=== PATIENT | male | born 1975 | race Caucasian/White ===

== ENCOUNTER 2017-11-10 10:34 | Emergency (ER) | payer BC ==
[2017-11-10] MEDS ORDERED: SODIUM CHLORIDE 0.9% 500 ML IV STA (11:13)
--- NOTE | 2017-11-10 11:15 | ED ---
General Adult HPI - General Chief complaint: Chest Pain Stated complaint: CHEST PAIN Time Seen by Provider: 11/10/17 10:40 Source: patient, RN notes reviewed Mode of arrival: ambulatory Limitations: no limitations - History of Present Illness Initial comments: 42-year-old male presents for evaluation of left-sided chest pain. Patient's pain has been present over the past 3 weeks. States it does come and go. He is able to point to a specific location. This is worse with movement of his shoulder. Pain radiates to the left shoulder. He did have an episode of nausea and vomiting this morning. He does complain of some diaphoresis associated with this pain. No central substernal chest pain. No significant dyspnea. Patient has no history of CAD. He is a current smoker, has no health problems. No family history of CAD. Patient denies any injury or trauma. - Related Data Home Medications Medication Instructions Recorded Confirmed Omeprazole 40 mg PO DAILY 11/10/17 11/10/17 Pnv No.95/Ferrous Fum/Folic AC 1 tab PO DAILY 11/10/17 11/10/17 [ Multivitamin Tablet] Previous Rx's Medication Instructions Recorded Ibuprofen [Motrin] 600 mg PO Q8HR PRN #24 tab 11/10/17 Allergies Allergy/AdvReac Type Severity Reaction Status Date / Time No Known Allergies Allergy Verified 11/10/17 11:39 Review of Systems ROS Statement: Those systems with pertinent positive or pertinent negative responses have been documented in the HPI. ROS Other: All systems not noted in ROS Statement are negative. Past Medical History Past Medical History: GERD/Reflux History of Any Multi-Drug Resistant Organisms: None Reported Past Surgical History: Orthopedic Surgery, Tonsillectomy Past Psychological History: No Psychological Hx Reported Smoking Status: Current every day smoker Past Alcohol Use History: Occasional Past Drug Use History: None Reported General Exam Limitations: no limitations General appearance: alert, in no apparent distress Head exam: Present: atraumatic, normocephalic Eye exam: Present: normal appearance, PERRL, EOMI ENT exam: Present: normal exam, mucous membranes dry Neck exam: Present: normal inspection. Absent: tenderness, meningismus Respiratory exam: Present: normal lung sounds bilaterally, chest wall tenderness. Absent: respiratory distress, wheezes Cardiovascular Exam: Present: regular rate, normal rhythm GI/Abdominal exam: Present: soft. Absent: distended, tenderness Extremities exam: Present: normal inspection, normal capillary refill. Absent: pedal edema Neurological exam: Present: alert, oriented X3, CN II-XII intact. Absent: motor sensory deficit Psychiatric exam: Present: normal affect, normal mood Skin exam: Present: warm, dry, intact. Absent: cyanosis, diaphoretic Course Vital Signs 11/10/17 11/10/17 11/10/17 10:36 12:09 12:52 Temperature 98.0 F Pulse Rate 102 H 91 63 Respiratory 20 18 18 Rate Blood Pressure 183/100 137/90 O2 Sat by Pulse 99 98 Oximetry EKG Findings - EKG Comments: EKG Findings:: EKG normal sinus rhythm with sinus arrhythmia, ventricular rate 91, LA interval 1:30, QRS duration 80, QTc 4:[address] segment changes, upright T waves. Medical Decision Making - Medical Decision Making Heart score: 1 42-year-old male with chest pain. EKG is nonischemic. Chest x-ray negative. Blood work including CBC, CMP, d-dimer and troponin is negative. Troponin being negative is reassuring as the patient has had symptoms since yesterday evening. Patient is offered observation for cardiology consultation and serial cardiac enzymes. He declines he wishes to have outpatient workup. - Lab Data Result diagrams: 11/10/17 10:59 11/10/17 10:59 Lab Results 11/10/17 11/10/17 11/10/17 Range/Units 10:59 10:59 10:59 WBC 9.3 (3.8-10.6) k/uL RBC 4.95 (4.30-5.90) m/uL Hgb 16.4 (13.0-17.5) gm/dL Hct 46.5 (39.0-53.0) % MCV 93.9 (80.0-100.0) fL MCH 33.2 (25.0-35.0) pg MCHC 35.3 (31.0-37.0) g/dL RDW 12.9 (11.5-15.5) % Plt Count 214 (150-450) k/uL Neutrophils % 75 % Lymphocytes % 17 % Monocytes % 5 % Eosinophils % 0 % Basophils % 1 % Neutrophils # 6.9 (1.3-7.7) k/uL Lymphocytes # 1.6 (1.0-4.8) k/uL Monocytes # 0.5 (0-1.0) k/uL Eosinophils # 0.0 (0-0.7) k/uL Basophils # 0.1 (0-0.2) k/uL PT (9.0-12.0) sec INR (<1.2) APTT (22.0-30.0) sec D-Dimer (<0.60) mg/L FEU Sodium 142 (137-145) mmol/L Potassium 4.4 (3.5-5.1) mmol/L Chloride 103 (98-107) mmol/L Carbon Dioxide 23 (22-30) mmol/L Anion Gap 16 mmol/L BUN 14 (9-20) mg/dL Creatinine 0.86 (0.66-1.25) mg/dL Est GFR (CKD-EPI)AfAm >90 (>60 ml/min/1.73 sqM) Est GFR (CKD-EPI)NonAf >90 (>60 ml/min/1.73 sqM) Glucose 92 (74-99) mg/dL Calcium 10.0 (8.4-10.2) mg/dL Magnesium 1.8 (1.6-2.3) mg/dL Total Bilirubin 0.7 (0.2-1.3) mg/dL AST 28 (17-59) U/L ALT 34 (21-72) U/L Alkaline Phosphatase 72 (38-126) U/L Total Creatine Kinase 305 H (55-170) U/L CK-MB (CK-2) 2.2 (0.0-2.4) ng/mL CK-MB (CK-2) Rel Index 0.7 Troponin I <0.012 (0.000-0.034) ng/mL NT-Pro-B Natriuret Pep pg/mL Total Protein 7.2 (6.3-8.2) g/dL Albumin 4.6 (3.5-5.0) g/dL Lipase 71 (23-300) U/L 11/10/17 11/10/17 Range/Units 10:59 10:59 WBC (3.8-10.6) k/uL RBC (4.30-5.90) m/uL Hgb (13.0-17.5) gm/dL Hct (39.0-53.0) % MCV (80.0-100.0) fL MCH (25.0-35.0) pg MCHC (31.0-37.0) g/dL RDW (11.5-15.5) % Plt Count (150-450) k/uL Neutrophils % % Lymphocytes % % Monocytes % % Eosinophils % % Basophils % % Neutrophils # (1.3-7.7) k/uL Lymphocytes # (1.0-4.8) k/uL Monocytes # (0-1.0) k/uL Eosinophils # (0-0.7) k/uL Basophils # (0-0.2) k/uL PT 9.7 (9.0-12.0) sec INR 1.0 (<1.2) APTT 22.7 (22.0-30.0) sec D-Dimer <0.17 (<0.60) mg/L FEU Sodium (137-145) mmol/L Potassium (3.5-5.1) mmol/L Chloride (98-107) mmol/L Carbon Dioxide (22-30) mmol/L Anion Gap mmol/L BUN (9-20) mg/dL Creatinine (0.66-1.25) mg/dL Est GFR (CKD-EPI)AfAm (>60 ml/min/1.73 sqM) Est GFR (CKD-EPI)NonAf (>60 ml/min/1.73 sqM) Glucose (74-99) mg/dL Calcium (8.4-10.2) mg/dL Magnesium (1.6-2.3) mg/dL Total Bilirubin (0.2-1.3) mg/dL AST (17-59) U/L ALT (21-72) U/L Alkaline Phosphatase (38-126) U/L Total Creatine Kinase (55-170) U/L CK-MB (CK-2) (0.0-2.4) ng/mL CK-MB (CK-2) Rel Index Troponin I (0.000-0.034) ng/mL NT-Pro-B Natriuret Pep 16 pg/mL Total Protein (6.3-8.2) g/dL Albumin (3.5-5.0) g/dL Lipase (23-300) U/L Disposition Clinical Impression: Chest pain Disposition: HOME SELF-CARE Condition: Good Instructions: Chest Pain (ED) Prescriptions: Ibuprofen [Motrin] 600 mg PO Q8HR PRN #24 tab PRN Reason: Pain Is patient prescribed a controlled substance at d/c from ED?: No Referrals: Gelacio Nunez MD [Primary Care Provider] - 1-2 days Jerod Blanchard MD [STAFF PHYSICIAN] - 1-2 days Time of Disposition: 13:19
--- NOTE | 2017-11-10 11:33 | XR ---
EXAMINATION TYPE: XR chest 2V DATE OF EXAM: 11/10/2017 COMPARISON: NONE TECHNIQUE: PA and lateral views submitted. HISTORY: Chest pain FINDINGS: The lungs are clear and there is no pneumothorax, pleural effusion, or focal pneumonia. Biapical pl eural thickening. Mild hypertrophic change of the spine. IMPRESSION: 1. No acute process.
[2017-11-10 11:40] LABS: ALT 34 U/L (21-72); AST 28 U/L (17-59); Albumin 4.6 g/dL (3.5-5.0); Alkaline Phosphatase 72 U/L (38-126); Anion Gap 16 mmol/L; Blood Urea Nitrogen 14 mg/dL (9-20); Carbon Dioxide 23 mmol/L (22-30); Chloride 103 mmol/L (98-107); Glucose 92 mg/dL (74-99); Lipase 71 U/L (23-300); Magnesium 1.8 mg/dL (1.6-2.3); Potassium 4.4 mmol/L (3.5-5.1); Sodium 142 mmol/L (137-145); Total Bilirubin 0.7 mg/dL (0.2-1.3); Total Protein 7.2 g/dL (6.3-8.2)
[2017-11-10 11:47] LABS: Basophils # (A) 0.1 k/uL (0-0.2); Basophils % (A) 1 %; Eosinophils % (A) 0 %; HCT 46.5 % (39.0-53.0); HGB 16.4 gm/dL (13.0-17.5); Lymphocytes # (A) 1.6 k/uL (1.0-4.8); Lymphocytes % (A) 17 %; MCH 33.2 pg (25.0-35.0); MCHC 35.3 g/dL (31.0-37.0); MCV 93.9 fL (80.0-100.0); Mean Platelet Volume 7.8; Monocytes # (A) 0.5 k/uL (0-1.0); Monocytes % (A) 5 %; Neutrophils # (A) 6.9 k/uL (1.3-7.7); Neutrophils % (A) 75 %; Platelet Count 214 k/uL (150-450); RBC 4.95 m/uL (4.30-5.90); RDW 12.9 % (11.5-15.5); WBC 9.3 k/uL (3.8-10.6)
[2017-11-10 11:49] LABS: D-Dimer <0.17 mg/L FEU (<0.60); Partial Thromboplastin Time 22.7 sec (22.0-30.0); Prothrombin Time 9.7 sec (9.0-12.0)
[2017-11-10 11:57] LABS: Creatine Kinase 305 U/L (55-170)
[2017-11-10 12:10] LABS: Creatine Kinase MB 2.2 ng/mL (0.0-2.4); Troponin I <0.012 ng/mL (0.000-0.034)
[2017-11-10 12:13] VITALS: RESP 18
[2017-11-10] MEDS ORDERED: KETOROLAC 30 MG/ML 1 ML VIAL IVP STA (12:20)
[2017-11-10 13:19] VITALS: BP 130/90; PULSE 77; TEMP 97.4
== END 2017-11-10 13:53 | disposition home or self-care (01) ==
LOC: EC 10:34
DX: R07.9 Chest pain, unspecified (principal); R11.2 Nausea with vomiting, unspecified; R61 Generalized hyperhidrosis; K21.9 Gastro-esophageal reflux disease without esophagitis; F17.200 Nicotine dependence, unspecified, uncomplicated; Z79.899 Other long term (current) drug therapy
CPT/HCPCS: 36415; 93005; 85379; 83880; 80053; 82550; 82553; 83690; 83735; 84484; 85025; 85610; 85730; 71046; 99285; 96374; 96361; J1885

== ENCOUNTER 2017-11-11 13:56 | Emergency (ER) | payer BC ==
[2017-11-11 14:00] VITALS: RESP 18
[2017-11-11] MEDS ORDERED: ASPIRIN 81 MG PO STA (14:24)
--- NOTE | 2017-11-11 14:34 | ED ---
Chest Pain HPI - General Chief Complaint: Chest Pain Stated Complaint: Chest pain Source: patient Mode of arrival: wheelchair Limitations: no limitations - History of Present Illness Initial Comments: This 42-year-old white male presents with a complaint of a left-sided chest pain. He describes this as a sharp pain that seems radiate to his left shoulder and has left back. It seems to be worse or better if he lifts his left arm. It will occur at rest. He states that it started approximately 2 days ago. He denies any shortness of breath. He denies any previous cardiac disease. He does not have a family history. He states that his blood pressure has been fluctuating slightly. He is unsure if his cholesterol is elevated. He further relates that he was seen in the ER yesterday for the same complaint. They did do a workup which didn't include x-rays labs and an EKG. This did not show any acute abnormalities at that time. They offered him admission to the hospital but he refuses. He followed up with his primary care physician and they ordered and an echocardiogram today. He had this done today and the echo nurse apparently sent him to the ER for further evaluation as his pain had recurred. He denies any other complaints or modifying factors. There is no leg pain or swelling. There is no history of DVT or PE. - Related Data Home Medications Medication Instructions Recorded Confirmed Omeprazole 40 mg PO DAILY 11/10/17 11/11/17 Pnv No.95/Ferrous Fum/Folic AC 1 tab PO DAILY 11/10/17 11/11/17 [ Multivitamin Tablet] Previous Rx's Medication Instructions Recorded Ibuprofen [Motrin] 600 mg PO Q8HR PRN #24 tab 11/10/17 Allergies Allergy/AdvReac Type Severity Reaction Status Date / Time No Known Allergies Allergy Verified 11/11/17 14:08 Review of Systems ROS Statement: Those systems with pertinent positive or pertinent negative responses have been documented in the HPI. ROS Other: All systems not noted in ROS Statement are negative. Past Medical History Past Medical History: GERD/Reflux History of Any Multi-Drug Resistant Organisms: None Reported Past Surgical History: Orthopedic Surgery, Tonsillectomy Past Psychological History: No Psychological Hx Reported Smoking Status: Current every day smoker Past Alcohol Use History: Occasional Past Drug Use History: None Reported General Exam - General Exam Comments Initial Comments: GENERAL: The patient is well nourished and well hydrated. VITAL SIGNS: Heart rate, blood pressure, respiratory rate reviewed as recorded in nurse's notes. EYES: Pupils are round and reactive. Extraocular movements are intact. No conjunctival / lid redness or swelling. ENT: No external evidence of injury, swelling, or ecchymosis. Airway is patent. Throat is clear. NECK: Nontender. No swelling or evidence of injury. No subcutaneous emphysema. Trachea is midline. No thyroid mass. HEART: Regular rate and rhythm. Good peripheral pulses. LUNGS/CHEST: Breath sounds clear and equal bilaterally. No rales, rhonchi, or wheezes. No ecchymosis, subcutaneous emphysema, or tenderness. ABDOMEN: Abdomen soft without tenderness. No palpable masses or organomegaly. No peritoneal signs. No abdominal wall swelling or ecchymosis. EXTREMITIES: No extremity tenderness. Normal muscle tone and function. No thoracolumbar tenderness. NEUROLOGIC: Sensation is grossly intact. Cranial nerve exam reveals face is symmetrical, tongue is midline, speech is clear. SKIN: No abrasions or ecchymosis is noted. No induration or masses noted. PSYCHIATRIC: Alert and oriented. Appropriate behavior and judgment. Limitations: no limitations Course Vital Signs 11/11/17 13:58 Temperature 98.0 F Pulse Rate 89 Respiratory 18 Rate Blood Pressure 145/95 O2 Sat by Pulse 99 Oximetry Chest Pain [facility] The patient was seen and examined. All diagnostics were reviewed. EKG shows a normal sinus rhythm at a rate of 82. There is no acute ST-T wave changes identified. The [place] intervals 138, QRS duration is 84 the QTC intervals 443. The patient does receive an aspirin. Old records are reviewed. The patient's cardiac enzymes were all within normal limits. He just had a negative d-dimer and chest x-ray done and other labs done yesterday. He appears quite well clinically at this time and is not having any current chest pain. He had an echo earlier and these results were reviewed and this does show greater than 55 % ejection fraction with no overt significant findings. He once again is offered admission to the hospital. A long discussion was held regarding the possibility of myocardial infarction significant coronary artery disease and all cardiac concerns. He does understand. The risks and benefits were discussed and ultimately detail and he still refuses to be admitted to the hospital. He is quite lucid and medical decision-making is intact. He states that he has a follow-up appointment with his doctor on Tuesday and will schedule a stress test on an outpatient basis. In addition, he further relates that he is going through very tough divorce at this time and is unsure if this can be stress related. It is felt as though this is really very possible and he may benefit from being on an SSRI type medication and is instructed to follow -up with his primary doctor on Tuesday in this regard as well. Disposition Clinical Impression: Chest pain, Hypertension Disposition: HOME SELF-CARE Instructions: Chest Pain (ED), Hypertension (ED) Is patient prescribed a controlled substance at d/c from ED?: No Referrals: Gelacio Nunez MD [Primary Care Provider] - 1-2 days Time of Disposition: 15:49
[2017-11-11 15:09] LABS: Creatine Kinase 177 U/L (55-170)
[2017-11-11 15:22] LABS: Creatine Kinase MB 1.4 ng/mL (0.0-2.4); Troponin I <0.012 ng/mL (0.000-0.034)
[2017-11-11 18:01] VITALS: BP 140/89; PULSE 87; TEMP 97.4
== END 2017-11-11 16:07 | disposition home or self-care (01) ==
LOC: EC 13:56
DX: I10 Essential (primary) hypertension (principal); R07.9 Chest pain, unspecified; K21.9 Gastro-esophageal reflux disease without esophagitis; F17.200 Nicotine dependence, unspecified, uncomplicated; Z79.899 Other long term (current) drug therapy; Z53.29 Procedure and treatment not carried out because of patient's decision for other reasons
CPT/HCPCS: 36415; 82550; 82553; 84484; 93005; 99285

== ENCOUNTER → 2017-11-11 | Outpatient (CLI) | payer BC ==
--- NOTE | 2017-11-11 14:24 | ECHOF ---
Referral Reason:R07.9 Chest Pain MEASUREMENTS -------- HEIGHT: 182.9 cm WEIGHT: 90.7 kg BP: IVSd: 1.1 cm (0.6 - 1.1) LVIDd: 4.7 cm (3.9 - 5.3) LVPWd: 1.5 cm (0.6 - 1.1) EDV(Teich): 104 ml IVSs: 1.2 cm LVIDs: 3.6 cm LVPWs: 1.3 cm %IVS Thck: 8 % ESV(Teich): 53 ml EF(Teich): 49 % %FS: 25 % SV(Teich): 51 ml LA Diam: 3.6 cm (2.7 - 3.8) RVIDd: 3.1 cm (< 3.3) Ao Diam: 3.0 cm (2.0 - 3.7) LA Diam: 3.4 cm (2.7 - 3.8) AV Cusp: 1.6 cm (1.5 - 2.6) EPSS: 0.5 cm MV E Ronn: 0.49 m/s MV DecT: 269 ms MV Dec Blanco: 1.8 m/s MV A Ronn: 0.64 m/s MV E/A Ratio: 0.77 MV PHT: 78 ms AV Vmax: 1.36 m/s AV maxP.36 mmHg TR Vmax: 1.98 m/s TR maxP.73 mmHg RAP: 5.00 mmHg RVSP: 20.73 mmHg MV EF SLOPE: 119.48 mm/s (70 - 150) MV EXCURSION: 15.27 mm (> 18.000) FINDINGS -------- Sinus rhythm. This was a technically good study. LV size, wall thickness and systolic function are normal, with an EF greater than 55%. The left atif tricular size is normal. The right ventricle is normal in size. The left atrial size is normal. The right atrial size is normal. The aortic valve is trileaflet, and appears structurally normal. No aortic stenosis or regurgitation. Mild mitral regurgitation is present. Mild tricuspid regurgitation present. There is no evidence of pulmonary hypertension. The right v entricular systolic pressure, as measured by Doppler, is 20.73mmHg. There is no pulmonic regurgitation present. The aortic root size is normal. Echo free space represents a pericardial fat pad. CONCLUSIONS -------- 1. LV size, wall thickness and systolic function are normal, with an EF greater than 55%. 2. The left ventricular size is normal. 3. The right ventricle is normal in size. 4. The left atrial size is normal. 5. The right atrial size is normal. 6. The aortic valve is trileaflet, and appears structurally normal. No aortic stenosis or regurgitati on. 7. Mild mitral regurgitation is present. 8. Mild tricuspid regurgitation present. 9. There is no evidence of pulmonary hypertension. 10. The right ventricular systolic pressure, as measured by Doppler, is 20.73mmHg. 11. There is no pulmonic regurgitation present. 12. The aortic root size is normal. 13. Echo free space represents a pericardial fat pad. MENTAL HEALTH PRACTITIONER: Leidy Martin RDCS
== END | disposition home or self-care (01) ==
LOC: RADECHMAIN 13:13
PROVIDERS: ATTEND Physician Assistant
DX: I08.1 Rheumatic disorders of both mitral and tricuspid valves (principal)
CPT/HCPCS: 93306

== ENCOUNTER → 2017-12-02 | Outpatient (CLI) | payer BC ==
[2017-12-05 19:51] LABS: Large VLDL Particle Number,NMR 8.3 nmol/L (<=2.7)
== END | disposition home or self-care (01) ==
LOC: LABWHC1 08:42
PROVIDERS: ATTEND Internal Medicine Cardiovascular Disease
DX: R07.9 Chest pain, unspecified (principal)
CPT/HCPCS: 36415; 83704

== ENCOUNTER 2018-08-07 15:36 | Emergency (ER) | payer BC, OTHER ==
[2018-08-07 16:48] VITALS: BP 129/92; PULSE 94; RESP 18; TEMP 98.3
[2018-08-07] MEDS ORDERED: KETOROLAC 60 MG/2 ML VIAL IM STA (17:28)
--- NOTE | 2018-08-07 17:32 | ED ---
General Adult HPI - General Chief complaint: Extremity Injury, Upper Stated complaint: Rib injury-[facility] Time Seen by Provider: 08/07/18 17:18 Source: patient, RN notes reviewed, old records reviewed Mode of arrival: ambulatory Limitations: no limitations - History of Present Illness Initial comments: 42-year-old male patient with past history of hypertension presents to ED with right rib pain. 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 Patient forced that he was lying with his back to the ground. Patient states that he felt and heard a loud pop in his right rib area. Patient reports pain around his seventh rib. Patient is a he has had a rib fracture on his left side before and this feels similarly. Patient denies any other injury. Patient denies all other complaints. Systemic: Pt denies fatigue, myalgia, fever/chills, rash. Pt denies weakness, night sweats, weight loss. Neuro: Pt denies headache, visual disturbances, syncope or pre-syncope. HEENT: Pt denies ocular discharge or irritation, otalgia, rhinorrhea, pharyngitis or notable lymphadenopathy. Cardiopulmonary: Pt denies chest pain, SOB, heart palpitations, dyspnea on exertion. Abdominal/GI: Pt denies abdominal pain, n/v/d. : Pt denies dysuria, burning w/ urination, frequency/urgency. Denies new onset urinary or bowel incontinence. MSK: Pt denies myalgia, loss of strength or function in extremities. Neuro: Pt denies new onset weakness, paresthesias. - Related Data Home Medications Medication Instructions Recorded Confirmed Pnv No.95/Ferrous Fum/Folic AC 1 tab PO DAILY 11/10/17 11/11/17 [ Multivitamin Tablet] RX: Omeprazole 40 mg PO DAILY 11/10/17 11/11/17 Previous Rx's Medication Instructions Recorded Ibuprofen [Motrin] 600 mg PO Q8HR PRN #24 tab 11/10/17 RX: Ibuprofen [Motrin] 600 mg PO Q6HR PRN #40 day 08/07/18 Allergies Allergy/AdvReac Type Severity Reaction Status Date / Time No Known Allergies Allergy Verified 11/11/17 14:08 Review of Systems ROS Statement: Those systems with pertinent positive or pertinent negative responses have been documented in the HPI. ROS Other: All systems not noted in ROS Statement are negative. Past Medical History Past Medical History: GERD/Reflux, Hyperlipidemia History of Any Multi-Drug Resistant Organisms: None Reported Past Surgical History: Orthopedic Surgery, Tonsillectomy Past Psychological History: No Psychological Hx Reported Smoking Status: Current every day smoker Past Alcohol Use History: Occasional Past Drug Use History: None Reported General Exam - General Exam Comments Initial Comments: Constitutional: NAD, AOX3, Pt has pleasant affect. HEENT: NC/AT, trachea midline, neck supple, no lymphadenopathy. Posterior pharynx non erythematous, without exudates. External ears appear normal, without discharge. Mucous membranes moist. Eyes PERRLA, EOM intact. There is no scleral icterus. No pallor noted. Cardiopulmonary: RRR, no murmurs, rubs or gallops, no JVD noted. Lungs CTAB in anterior and posterior brower. No peripheral edema. Abdominal exam: Abdomen soft and non-distended. Abdomen non-tender to palpation in all 4 quadrants. Bowel sounds active in LLQ. No hepatosplenomegaly. No ecchymosis Neuro: CN II-XII grossly intact. No nuchal rigidity. MSK: Tenderness to palpation of R 7th rib. No ecchymosis. No posterior calf tenderness bilaterally, homans sign negative bilaterally. Posterior tibialis and radial pulse +2 bilaterally. Sensation intact in upper and lower extremities. Full active ROM in upper and lower extremities, 5/5 stregnth. Limitations: no limitations Course Vital Signs 08/07/18 16:43 Temperature 98.3 F Pulse Rate 94 Respiratory 18 Rate Blood Pressure 129/92 O2 Sat by Pulse 98 Oximetry Medical Decision Making - Medical Decision Making 42-year-old male patient with past history of hypertension presents to ED with right rib pain. 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 Patient forced that he was lying with his back to the ground. Patient states that he felt and heard a loud pop in his right rib area. Patient reports pain around his seventh rib. Patient vital signs stable. Physical exam displayed some tenderness to right 7th rib. No ecchymoses. No abdominal pain. Lungs to auscultation anterior and posterior brower bilaterally. Plain film of right ribs with PA chest displayed no acute Pulmonary process, no acute displays right-sided rib fractures. No pneumothorax. I explained patient in depth, pt diagnosed with rib contusion. Patient to follow with PCP 1-2 days. Patient prescribed ibuprofen for pain. Patient to return to ED if new signs symptoms develop or condition worsens in anyway. Case discussed in depth with Dr. Tran. Disposition Clinical Impression: Contusion of rib on right side Disposition: HOME SELF-CARE Condition: Stable Instructions (If sedation given, give patient instructions): Rib Contusion (ED) Additional Instructions: Patient to adhere to previously discussed treatment plan and will take medication(s) as directed. Patient to follow up with PCP in 1-2 days. Patient to return to ED if symptoms do not improve. Prescriptions: RX: Ibuprofen [Motrin] 600 mg PO Q6HR PRN #40 day PRN Reason: Pain Is patient prescribed a controlled substance at d/c from ED?: No Referrals: Gelacio Nunez MD [Primary Care Provider] - 1-2 days Time of Disposition: 17:58
--- NOTE | 2018-08-07 17:33 | XR ---
EXAMINATION TYPE: XR ribs RT w pa chest xray DATE OF EXAM: 08/07/2018 CLINICAL HISTORY: Chest and right-sided rib pain today. TECHNIQUE: Single frontal view of the chest is obtained. A frontal and oblique images of right-sided ribs are acquired. COMPARISON: Chest x-ray November 10, 2017. FINDINGS: There is no focal air space opacity, pleural effusion, or pneumothorax seen. The cardiac silhouette size is within normal limits. The osseous structures are intact. Dedicated images of right-sided ribs show no acute displaced fracture. Overlying soft tissue is unrem arkable. IMPRESSION: 1. No acute cardiopulmonary process. 2. No acute displaced right-sided rib fractures are evident.
== END 2018-08-07 18:13 | disposition home or self-care (01) ==
LOC: EC 15:36
DX: S20.211A Contusion of right front wall of thorax, initial encounter (principal); K21.9 Gastro-esophageal reflux disease without esophagitis; I10 Essential (primary) hypertension; F17.200 Nicotine dependence, unspecified, uncomplicated; Z79.899 Other long term (current) drug therapy; X50.1XXA Overexertion from prolonged static or awkward postures, initial encounter; Y92.69 Other specified industrial and construction area as the place of occurrence of the external cause; Y99.0 Civilian activity done for income or pay
CPT/HCPCS: 71101; 99284; 96372; J1885

== ENCOUNTER → 2018-08-14 | Outpatient (CLI) | payer SELFPAY ==
--- NOTE | 2018-08-14 16:37 | XR ---
Chest x-ray with right RIBS HISTORY: Trauma and pain Frontal view of the chest, 4 views of the right ribs correlated to prior chest x-ray and RIBS Chest is stable. No pneumothorax or pleural effusion. Heart size is unchanged. Anterior rib fracture is present at the seventh and eighth ribs. IMPRESSION: Anterior right rib fractures. Bone scan could be performed for increased sensitivity if o ccult fracture is suspected clinically.
== END | disposition home or self-care (01) ==
LOC: RADXRMAIN 13:53
PROVIDERS: ATTEND Physician Assistant
DX: S22.41XA Multiple fractures of ribs, right side, initial encounter for closed fracture (principal)

== ENCOUNTER → 2018-12-04 | Outpatient (CLI) | payer BC ==
--- NOTE | 2018-12-04 16:56 | CT ---
EXAMINATION TYPE: CT abdomen pelvis w con DATE OF EXAM: 12/04/2018 COMPARISON: None HISTORY: RLQ pain CT DLP: 1560 mGycm Automated exposure control for dose reduction was used. TECHNIQUE: Helical acquisition of images was performed from the lung bases through the pelvis. CONTRAST: Performed with Oral Contrast and with IV Contrast, patient injected with 100 mL of Isovue 300. FINDINGS: Lung bases are clear. There is no pleural effusion. Heart size is normal. Stomach appears normal. Silvana er spleen pancreas gallbladder appear normal. Bile ducts are not dilated. There is no adrenal mass. Kidneys show satisfactory contrast opacification. There is no hydronephrosi s. Ureters are not dilated. There is no retroperitoneal adenopathy. Bladder distends smoothly. There is prostatic calcification. There is no inguinal hernia. There is no free fluid in the pelvis. There are a few sigmoid diverticula. There is no sign of diverticulitis. Terminal ileum appears normal. The appendix appears normal. I see no intestinal wall thickening. There is no mesenteric edema. There is no ascites. There is no s ign of free air. There is degenerative disc space narrowing at L4-5 with vacuum disc and spur formati on. I see no focal bone destruction. IMPRESSION: Normal appendix. No sign of acute abdomen and pelvis. IMPRESSION:
== END | disposition home or self-care (01) ==
LOC: RADCTMAIN 14:59
PROVIDERS: ATTEND Physician Assistant
DX: R10.9 Unspecified abdominal pain (principal)
CPT/HCPCS: 74177; Q9967

== ENCOUNTER → 2022-10-29 | Outpatient (CLI) | payer BC ==
--- NOTE | 2022-10-29 08:29 | CT ---
EXAMINATION TYPE: CT facial bones w con DATE OF EXAM: 10/29/2022 COMPARISON: None HISTORY: 46-year-old male Facial trauma, RT eye region, 4 weeks ago. Eye continuously watering. TECHNIQUE: Contiguous axial scanning of the facial bones performed with IV Contrast, patient injected with 100 mL of Isovue 300. Coronal and sagittal reconstructions performed. CT DLP: 514.10 mGycm Automated exposure control for dose reduction was used. FINDINGS: Slight rightward nasal septal deviation. Trace mucosal thickening anterior ethmoid air cells. Otherwi se, paranasal sinuses and mastoid air cells are well pneumatized. Slight angulated deformity to the right nasal bone likely relates to old nasal bone injury. Overlying soft tissue swelling here. No significant preseptal soft tissue swelling is apparent by CT. Orbits and globes appear symmetric a nd intact. No intraorbital retrobulbar abnormality is seen. No acute facial bone fracture. TMJs are intact. IMPRESSION: SUSPECT OLD HEALED RIGHT-SIDED NASAL BONE FRACTURE GIVEN THE LACK OF OVERLYING SOFT TISSUE SWELLING. CLINICALLY CORRELATE. NO PRESEPTAL OR POSTSEPTAL ABNORMALITY IDENTIFIED AT THE ORBITS BY CT. NO ACUTE OR HEALING FACIAL BONE FRACTURE SEEN. TRACE MUCOSAL THICKENING ANTERIOR ETHMOID AIR CELLS AND RIGHTW JOVITA NASAL SEPTAL DEVIATION.
== END | disposition home or self-care (01) ==
LOC: RADCTMAIN 07:38
PROVIDERS: ATTEND Family Medicine
DX: S09.93XA Unspecified injury of face, initial encounter (principal); J34.2 Deviated nasal septum
CPT/HCPCS: 70487; Q9967

== ENCOUNTER 2023-06-03 13:54 | Emergency (ER) | payer BC ==
[2023-06-03 14:32] LABS: Basophils # (A) 0.1 k/uL (0-0.2); Basophils % (A) 1 %; Eosinophils # (A) 0.1 k/uL (0-0.7); Eosinophils % (A) 1 %; HCT 48.4 % (39.0-53.0); HGB 16.6 gm/dL (13.0-17.5); Lymphocytes # (A) 1.7 k/uL (1.0-4.8); Lymphocytes % (A) 17 %; MCH 34.2 pg (25.0-35.0); MCHC 34.4 g/dL (31.0-37.0); MCV 99.4 fL (80.0-100.0); Mean Platelet Volume 8.1; Monocytes # (A) 0.8 k/uL (0-1.0); Monocytes % (A) 8 %; Neutrophils # (A) 6.9 k/uL (1.3-7.7); Neutrophils % (A) 71 %; Platelet Count 199 k/uL (150-450); RBC 4.87 m/uL (4.30-5.90); RDW 12.6 % (11.5-15.5); WBC 9.7 k/uL (3.8-10.6)
[2023-06-03 14:45] LABS: ALT 29 U/L (4-49); AST 26 U/L (17-59); African American GFR (CKD) >90 (>60 ml/min/1.73 sqM); Albumin 4.7 g/dL (3.5-5.0); Alkaline Phosphatase 74 U/L (38-126); Amylase 78 U/L (30-110); Anion Gap 10 mmol/L; Blood Urea Nitrogen 15 mg/dL (9-20); Calcium 9.9 mg/dL (8.4-10.2); Carbon Dioxide 28 mmol/L (22-30); Chloride 103 mmol/L (98-107); Glucose 100 mg/dL (74-99); Lipase 179 U/L (23-300); Non-African American GFR(CKD) >90 (>60 ml/min/1.73 sqM); Potassium 3.7 mmol/L (3.5-5.1); Sodium 141 mmol/L (137-145); Total Bilirubin 0.8 mg/dL (0.2-1.3); Total Protein 7.8 g/dL (6.3-8.2)
--- NOTE | 2023-06-03 14:54 | ED ---
Abdominal Pain HPI - General Source: patient, RN notes reviewed Mode of arrival: ambulatory Limitations: no limitations <Tasneem Vega - Last Filed: 06/03/23 14:53> <Barbra Weldon - Last Filed: 06/05/23 00:36> - General Chief Complaint: Abdominal Pain Stated Complaint: poss appendix,sent by pcp Time Seen by Provider: 06/03/23 14:53 - History of Present Illness Initial Comments: Patient is a 57 from an presented ER with chief complaint of right abdominal and flank pain. Patient was sent here by PCP. Patient denies any fevers, chills, night sweats. (Tasneem Vega) 47-year-old male presents emergency department chief complaint of right sided abdominal pain 3-4 days. He states that it was significantly worse today. In by his primary care provider for further evaluation. He denies any other associated symptoms. Denies nausea, vomiting, fever, chills, loss of appetite. He reports normal bowel movements and denies any urinary symptoms. (Barbra Weldon) - Related Data Home Medications Medication Instructions Recorded Confirmed Omeprazole 40 mg PO DAILY 11/10/17 11/11/17 Pnv No.95/Ferrous Fum/Folic AC 1 tab PO DAILY 11/10/17 11/11/17 [ Multivitamin Tablet] Previous Rx's Medication Instructions Recorded Ibuprofen [Motrin] 600 mg PO Q8HR PRN #24 tab 11/10/17 Ibuprofen [Motrin] 600 mg PO Q6HR PRN #40 day 08/07/18 lisinopriL [Prinivil] 10 mg PO DAILY #30 tab 06/03/23 Allergies Allergy/AdvReac Type Severity Reaction Status Date / Time No Known Allergies Allergy Verified 11/11/17 14:08 Review of Systems ROS Other: All systems not noted in ROS Statement are negative. <Tasneem Vega - Last Filed: 06/03/23 14:53> ROS Other: All systems not noted in ROS Statement are negative. <Barbra Weldon - Last Filed: 06/05/23 00:36> ROS Statement: Those systems with pertinent positive or pertinent negative responses have been documented in the HPI. Past Medical History Past Medical History: GERD/Reflux, Hyperlipidemia History of Any Multi-Drug Resistant Organisms: None Reported Past Surgical History: Orthopedic Surgery, Tonsillectomy Past Psychological History: No Psychological Hx Reported Past Alcohol Use History: Occasional Past Drug Use History: None Reported <Tasneem Vega - Last Filed: 06/03/23 14:53> General Exam Limitations: no limitations <Tasneem Vega - Last Filed: 06/03/23 14:53> Limitations: no limitations General appearance: alert, in no apparent distress Head exam: Present: atraumatic, normocephalic, normal inspection Eye exam: Present: normal appearance, PERRL, EOMI. Absent: scleral icterus, conjunctival injection, periorbital swelling ENT exam: Present: normal exam, mucous membranes moist Neck exam: Present: normal inspection. Absent: tenderness, meningismus, lymphadenopathy Respiratory exam: Present: normal lung sounds bilaterally. Absent: respiratory distress, wheezes, rales, rhonchi, stridor Cardiovascular Exam: Present: regular rate, normal rhythm, normal heart sounds. Absent: systolic murmur, diastolic murmur, rubs, gallop, clicks GI/Abdominal exam: Present: soft, normal bowel sounds. Absent: distended, tenderness, guarding, rebound, rigid Extremities exam: Present: normal inspection, full ROM, normal capillary refill. Absent: tenderness, pedal edema, joint swelling, calf tenderness Back exam: Present: normal inspection Neurological exam: Present: alert, oriented X3 Psychiatric exam: Present: normal affect, normal mood Skin exam: Present: warm, dry, intact, normal color. Absent: rash <Barbra Weldon - Last Filed: 06/05/23 00:36> - General Exam Comments Initial Comments: Visual Physical Exam Vital signs reviewed General: Well-appearing, nontoxic, no acute distress. Head: Normocephalic, atraumatic Eyes: PERRLA, EOMI ENT: Airway patent Chest: Nonlabored breathing Skin: No visual rash, normal skin tone Neuro: Alert and oriented 3 Musculoskeletal: No gross abnormalities (Tasneem Vega) Course Vital Signs 06/03/23 06/03/23 06/03/23 14:04 18:46 20:24 Temperature 989 F H 98.8 F Pulse Rate 118 H 98 92 Respiratory 20 18 18 Rate Blood Pressure 162/103 160/108 139/93 O2 Sat by Pulse 98 97 96 Oximetry Medical Decision Making - Lab Data Result diagrams: 06/03/23 14:10 06/03/23 14:10 <Tasneem Vega - Last Filed: 06/03/23 14:53> - Lab Data Result diagrams: 06/03/23 14:10 06/03/23 14:10 <Barbra Weldon - Last Filed: 06/05/23 00:36> - Medical Decision Making I performed the quick note portion of the exam. Electronically signed by Tasneem Vega PA-C (Tasneem Vega) Was pt. sent in by a medical professional or institution ([facility], [facility], urgent care, hospital, or fdc...) When possible be specific @ -No Did you speak to anyone other than the patient for history (EMS, parent, family, police, friend...)? What history was obtained from this source @ -No Did you review nursing and triage notes (agree or disagree)? Why? @ -I reviewed and agree with nursing and triage notes Were old charts reviewed (outside hosp., previous admission, EMS record, old EKG, old radiological studies, urgent care reports/EKG's, fdc records)? Report findings @ -No old charts were reviewed Differential Diagnosis (chest pain, altered mental status, abdominal pain women, abdominal pain men, vaginal bleeding, weakness, fever, dyspnea, syncope, headache, dizziness, GI bleed, back pain, seizure, CVA, palpatations, mental health, musculoskeletal)? @ -Differential Abdominal Pain Men: Appendicitis, cholecystitis, diverticulosis, ischemic bowel, pancreatitis, hepat itis, UTI, gastroenteritis, AAA, incarcerated hernia, bowel obstruction, constipation, inflammatory bowel, hepatitis, peptic ulcer disease, splenic infarction, perforated viscus, testicular torsion, this is not meant to be an all-inclusive list EKG interpreted by me (3pts min.). @ -None X-rays interpreted by me (1pt min.). @ -None done CT interpreted by me (1pt min.). @ -CT abdomen and pelvis shows no acute injury or abdominal process, diverticulosis without acute diverticulitis U/S interpreted by me (1pt. min.). @ -None done What testing was considered but not performed or refused? (CT, X-rays, U/S, labs)? Why? @ -None What meds were considered but not given or refused? Why? @ -None Did you discuss the management of the patient with other professionals (professionals i.e. , PA, [facility], lab, RT, psych nurse, forensic social worker, substation operator, teacher, special technical operations officer, pillowcase folder)? Give summary @ -No Was smoking cessation discussed for >3mins.? @ -No Was critical care preformed (if so, how long)? @ -No Were there social determinants of health that impacted care today? How? (Homelessness, low income, unemployed, alcoholism, drug addiction, transportation, low edu. Level, literacy, decrease access to med. care, intermediate, rehab)? @ -No Was there de-escalation of care discussed even if they declined (Discuss DNR or withdrawal of care, Hospice)? DNR status @ -No What co-morbidities impacted this encounter? (DM, HTN, Smoking, COPD, CAD, Cancer, CVA, ARF, Chemo, Hep., AIDS, mental health diagnosis, sleep apnea, morbid obesity)? @ -None Was patient admitted / discharged? Hospital course, mention meds given and route, prescriptions, significant lab abnormalities, going to OR and other pertinent info. @ -Discharged. Patient presented to the emergency department chief complaint of right sided mid abdominal pain. Laboratory studies obtained which are unremarkable including CBC CMP and troponin, UA negative for leukocyte esterase, negative nitrite. CT abdomen and pelvis obtained which shows no acute intra- abdominal process. Patient is concerned because his blood pressure is elevated and has been elevated on multiple occasions prior to this but he has not been started on any treatment. He is requesting medication for hypertension management. Patient prescribed lisinopril 10 mg and advised to follow up with his PCP for further management. Patient understands agreeable with plan and stable at time of discharge. Case discussed with Dr. Martinez. Undiagnosed new problem with uncertain prognosis? @ -No Drug Therapy requiring intensive monitoring for toxicity (Heparin, Nitro, Insulin, Cardizem)? @ -No Were any procedures done? @ -No Diagnosis/symptom? @ -abdominal pain Acute, or Chronic, or Acute on Chronic? @ -Acute Uncomplicated (without systemic symptoms) or Complicated (systemic symptoms)? @ -uncomplicated Side effects of treatment? @ -No Exacerbation, Progression, or Severe Exacerbation? @ -No Poses a threat to life or bodily function? How? (Chest pain, [place], [place], pneumonia, PE, COPD, DKA, ARF, appy, cholecystitis, CVA, Diverticulitis, Homicidal, Suicidal, threat to staff... and all critical care pts) @ -No (Barbra Weldon) - Lab Data Lab Results 06/03/23 06/03/23 06/03/23 Range/Units 14:10 14:10 14:10 WBC 9.7 (3.8-10.6) k/uL RBC 4.87 (4.30-5.90) m/uL Hgb 16.6 (13.0-17.5) gm/dL Hct 48.4 (39.0-53.0) % MCV 99.4 (80.0-100.0) fL MCH 34.2 (25.0-35.0) pg MCHC 34.4 (31.0-37.0) g/dL RDW 12.6 (11.5-15.5) % Plt Count 199 (150-450) k/uL MPV 8.1 Neutrophils % 71 % Lymphocytes % 17 % Monocytes % 8 % Eosinophils % 1 % Basophils % 1 % Neutrophils # 6.9 (1.3-7.7) k/uL Lymphocytes # 1.7 (1.0-4.8) k/uL Monocytes # 0.8 (0-1.0) k/uL Eosinophils # 0.1 (0-0.7) k/uL Basophils # 0.1 (0-0.2) k/uL Sodium 141 (137-145) mmol/L Potassium 3.7 (3.5-5.1) mmol/L Chloride 103 (98-107) mmol/L Carbon Dioxide 28 (22-30) mmol/L Anion Gap 10 mmol/L BUN 15 (9-20) mg/dL Creatinine 0.95 (0.66-1.25) mg/dL Est GFR (CKD-EPI)AfAm >90 (>60 ml/min/1.73 sqM) Est GFR (CKD-EPI)NonAf >90 (>60 ml/min/1.73 sqM) Glucose 100 H (74-99) mg/dL Plasma Lactic Acid Jordon 1.2 (0.7-2.0) mmol/L Calcium 9.9 (8.4-10.2) mg/dL Total Bilirubin 0.8 (0.2-1.3) mg/dL AST 26 (17-59) U/L ALT 29 (4-49) U/L Alkaline Phosphatase 74 (38-126) U/L Troponin I (0.000-0.034) ng/mL Total Protein 7.8 (6.3-8.2) g/dL Albumin 4.7 (3.5-5.0) g/dL Amylase 78 (30-110) U/L Lipase 179 (23-300) U/L Urine Color Urine Appearance (Clear) Urine pH (5.0-8.0) Ur Specific [place] (1.001-1.035) Urine Protein (Negative) Urine Glucose (UA) (Negative) Urine Ketones (Negative) Urine Blood (Negative) Urine Nitrite (Negative) Urine Bilirubin (Negative) Urine Urobilinogen (<2.0) mg/dL Ur Leukocyte Esterase (Negative) 06/03/23 06/03/23 Range/Units 14:10 18:58 WBC (3.8-10.6) k/uL RBC (4.30-5.90) m/uL Hgb (13.0-17.5) gm/dL Hct (39.0-53.0) % MCV (80.0-100.0) fL MCH (25.0-35.0) pg MCHC (31.0-37.0) g/dL RDW (11.5-15.5) % Plt Count (150-450) k/uL MPV Neutrophils % % Lymphocytes % % Monocytes % % Eosinophils % % Basophils % % Neutrophils # (1.3-7.7) k/uL Lymphocytes # (1.0-4.8) k/uL Monocytes # (0-1.0) k/uL Eosinophils # (0-0.7) k/uL Basophils # (0-0.2) k/uL Sodium (137-145) mmol/L Potassium (3.5-5.1) mmol/L Chloride (98-107) mmol/L Carbon Dioxide (22-30) mmol/L Anion Gap mmol/L BUN (9-20) mg/dL Creatinine (0.66-1.25) mg/dL Est GFR (CKD-EPI)AfAm (>60 ml/min/1.73 sqM) Est GFR (CKD-EPI)NonAf (>60 ml/min/1.73 sqM) Glucose (74-99) mg/dL Plasma Lactic Acid Jordon (0.7-2.0) mmol/L Calcium (8.4-10.2) mg/dL Total Bilirubin (0.2-1.3) mg/dL AST (17-59) U/L ALT (4-49) U/L Alkaline Phosphatase (38-126) U/L Troponin I <0.012 (0.000-0.034) ng/mL Total Protein (6.3-8.2) g/dL Albumin (3.5-5.0) g/dL Amylase (30-110) U/L Lipase (23-300) U/L Urine Color Yellow Urine Appearance Clear (Clear) Urine pH 6.0 (5.0-8.0) Ur Specific [place] 1.020 (1.001-1.035) Urine Protein Negative (Negative) Urine Glucose (UA) Negative (Negative) Urine Ketones Negative (Negative) Urine Blood Negative (Negative) Urine Nitrite Negative (Negative) Urine Bilirubin Negative (Negative) Urine Urobilinogen <0.2 (<2.0) mg/dL Ur Leukocyte Esterase Negative (Negative) Disposition <Tasneem Vega - Last Filed: 06/03/23 14:53> Is patient prescribed a controlled substance at d/c from ED?: No <Barbra Weldon - Last Filed: 06/05/23 00:36> Clinical Impression: Abdominal pain Disposition: HOME SELF-CARE Condition: Stable Instructions (If sedation given, give patient instructions): Acute Abdominal P ain (ED) Additional Instructions: Alternate Tylenol and Motrin as needed for pain. Please follow up with your primary care provider. Return to the emergency department for new or worsening symptoms. Prescriptions: lisinopriL [Prinivil] 10 mg PO DAILY #30 tab Referrals: Gelacio Nunez MD [Primary Care Provider] - 1-2 days
--- NOTE | 2023-06-03 16:10 | CT ---
EXAMINATION: CT ABDOMEN AND PELVIS WITH IV CONTRAST DATE OF EXAMINATION: 06/03/2023. COMPARISON: 12/04/2018.. INDICATION: Right lower quadrant pain. PROCEDURE: Axial CT of the abdomen and pelvis was performed with contrast and sagittal and coronal reformatted images were performed. CT dose lowering techniques were used, to include: automated expos ure control, adjustment for patient size, and/or use of iterative reconstruction. 100 mL of Isovue-30 0 was given intravenously. FINDINGS: LOWER CHEST : The visualized lung bases are clear. There are no pleural or pericardial effusions. ABDOMEN: Liver and Biliary system: Normal. Adrenal glands: Normal. Kidneys and ureters: Normal. Spleen: Normal. Pancreas: Normal. Gallbladder: Normal. Lymph nodes, Peritoneum and mesentery: There is no mesenteric or retroperitoneal lymphadenopathy. Gastrointestinal tract: There are no dilated loops of bowel or free intraperitoneal air. The appe ndix is normal. There is mild sigmoid colonic diverticulosis without evidence of diverticulitis. Aorta/IVC: No aortic aneurysm. IVC normal. Abdominal wall: Normal. PELVIS: Fluid: There is no free fluid in the pelvis. Lymph Nodes: There is no pelvic or inguinal lymphadenopathy.. Urinary bladder: Normal. BONES: There are no osseous destructive lesions.. ADDITIONAL SIGNIFICANT FINDINGS: None. IMPRESSION: 1. No acute process within the abdomen or pelvis. 2. Diverticulosis without evidence of diverticulitis.
[2023-06-03 18:56] VITALS: RESP 18
[2023-06-03] MEDS ORDERED: KETOROLAC 15 MG/ML 1 ML VIAL IVP STA (19:12)
[2023-06-03 19:35] LABS: Appearance,Urine Clear (Clear); Color,Urine Yellow
[2023-06-03 19:36] LABS: Bilirubin,Urine Negative (Negative); Blood,Urine Negative (Negative); Glucose,Urine (UA) Negative (Negative); Ketones,Urine Negative (Negative); Leukocyte Esterase,Urine Negative (Negative); Nitrite,Urine Negative (Negative); Protein,Urine Negative (Negative); Urobilinogen,Urine <0.2 mg/dL (<2.0)
[2023-06-03] MEDS ORDERED: lisinopriL 10 MG TAB PO STA (19:36)
[2023-06-03 20:38] VITALS: BP 139/93; PULSE 92; TEMP 98.8
== END 2023-06-03 20:27 | disposition home or self-care (01) ==
LOC: EC 13:54
DX: K21.9 Gastro-esophageal reflux disease without esophagitis (principal); Z79.899 Other long term (current) drug therapy
CPT/HCPCS: 99284; 96374; 36415; 93005; 80053; 82150; 83605; 83690; 84484; 85025; 81003; 74177; J1885; Q9967